=== PATIENT | male | born 1995 ===

== ENCOUNTER 2021-06-09 14:24 | Outpatient (CLI) | payer OTHER | END 2021-06-09 15:41 | disposition home or self-care (01) | LOC: RAD 14:24 | PROVIDERS: ATTEND Orthopaedic Surgery | DX: S52.531B Colles' fracture of right radius, initial encounter for open fracture type I or II (principal) ==

== ENCOUNTER 2021-07-07 13:58 | Outpatient (CLI) | payer OTHER | END 2021-07-07 14:09 | disposition home or self-care (01) | LOC: RAD 13:58 → EDBD 13:58 → RAD 14:09 | PROVIDERS: ATTEND Orthopaedic Surgery | DX: S52.531D Colles' fracture of right radius, subsequent encounter for closed fracture with routine healing (principal) ==

== ENCOUNTER → 2021-07-28 | Outpatient (CLI) | payer OTHER | END | disposition home or self-care (01) | LOC: RAD 13:27 | PROVIDERS: ATTEND Orthopaedic Surgery | DX: S52.531D Colles' fracture of right radius, subsequent encounter for closed fracture with routine healing (principal) ==